=== PATIENT | female | born 1960 | race Caucasian/White ===

== ENCOUNTER 2024-05-16 16:32 | Emergency (ER) | payer OTHER, SELFPAY ==
[2024-05-16 16:42] VITALS: BP 154/86
[2024-05-16 17:06] LABS: % Basophils 0.6 % (0-2); % Eosinophils 3.3 % (0-6); % Immature Granulocytes 0.4 % (0-0.5); % Lymphocytes 36.6 % (20.5-51.1); % Monocytes 6.9 % (1.7-9.3); % Neutrophils 52.2 % (42.2-75.2); Absolute Basophils 0.1 10^3/uL (0-0.2); Absolute Eosinophils 0.3 10^3/uL (0-0.7); Absolute Lymphocytes 2.9 10^3/uL (1.2-3.4); Absolute Monocytes 0.6 10^3/uL (0.1-0.6); Absolute Neutrophils 4.2 10^3/uL (1.4-6.5); Hematocrit 42.1 % (37.0-47.0); Hemoglobin 15.1 g/dL (12.0-16.0); Mean Corp Hgb Conc. 35.9 g/dL (33.0-37.0); Mean Corpuscular Hgb 33.1 pg (27.0-31.0); Mean Corpuscular Volume 92.3 fL (81.0-99.0); Mean Platelet Volume 9.7 fL (7.4-10.4); Nucleated Red Blood Cells % 0 %; Platelet Count 276 10^3/uL (130-400); Red Blood Cell Count 4.56 10^6/uL (4.20-5.40); Red Cell Dist. Width 13.2 % (11.5-14.5)
[2024-05-16 17:18] LABS: ALT (SGPT) 37 U/L (0-35); AST (SGOT) 38 U/L (14-36); Albumin 4.6 g/dl (3.5-5.0); Alkaline Phosphatase 82 U/L (38-126); Blood Urea Nitrogen 19 mg/dl (7-17); Calcium 10.1 mg/dl (8.4-10.2); Carbon Dioxide 23 mmol/L (22-30); Chloride 108 mmol/L (98-107); Glucose 108 mg/dl (70-99); Potassium 4.5 mmol/L (3.5-5.1); Sodium 141 mmol/L (135-145); Total Bilirubin 0.6 mg/dl (0.2-1.3); Total Protein 7.1 g/dl (6.3-8.2); eGFR > 60.00
[2024-05-16 19:22] VITALS: BP 145/99
[2024-05-16 20:02] VITALS: BMI 25.9
[2024-05-16 20:03] VITALS: BP 145/96
--- NOTE | 2024-05-16 20:31 | ED.GENMED ---
History of Present Illness
General
Chief Complaint: Facial Problem
Source: patient
Exam Limitations: none
Time Seen by Provider: 05/16/24 19:31
History of Present Illness
History of Present Illness:
This is a 63 year old female that comes in with c/o bump on the left sided of her face. States that she felt that she has had this bump but it slide down lower on the cheek. States that it has now changed color . Patient was seen by the
[employer] and they were going to remove this but she did not want a scar States that the bump has gotten larger and is tender. States that she has an appointment with the Plastic surgeon on Tuesday. States that she has had a headache. Denies
any fever, chills, chest pain, SOB, abd pain, vomiting, diarrhea, dizziness, urinary burning.
Past History
Past History
ED Past Medical History: HTN, Psychiatric (Depression) and Other (Gastritis, enlarged gastric folds, )
ED Past Surgical History: Gynecological (Tubal)
Social History
Tobacco: Former smoker
Alcohol: None
Personal: Other (Seperated)
Living: with family
Review of Systems
Review of Systems
All Other Systems: ROS reviewed and negative except as documented in HPI and ROS
Constitutional: Reports no symptoms; Denies fever or chills
EENT: Reports no symptoms
Respiratory: Reports no symptoms; Denies cough or trouble breathing
Cardiac: Reports no symptoms; Denies chest pain
ABD/GI: Reports nausea; Denies abdominal pain, vomiting or diarrhea
: Reports no symptoms; Denies dysuria or urgency
Musculoskeletal: Reports no symptoms
Skin: Reports other (Bump on left cheek. )
Neurological: Reports headache; Denies dizzy
Psychiatric: Reports no symptoms
Phy Exam
General Physical Exam
General Presentation: well appearing and no apparent distress
General age: appears stated age
General Skin: warm and dry
General Habitus: normal
General Mental: alert
General Hydration: appears well hydrated
ENT Exam
ENT Exam: TM's normal, pharynx normal and neck supple
Eye Exam
Eye Exam: EOMI
Cardiovascular Exam
Cardiovascular Exam: regular rate/rhythm, no edema and normal peripheral pulses
Pulmonary Exam
Pulmonary Exam: lungs clear, no respiratory distress, no rales, chest non tender, no crackles, no rhonchi, no wheezing and no cough
Musculoskeletal Exam
Musculoskeletal Exam: full ROM and no edema
Skin Exam
Skin Exam: normal color, warm/dry, no rash, no petechia and other (Small abscess noted on the left cheek. Negative for any redness)
Psychiatric Exam
Psychiatric Exam: normal mood/affect
Course
Orders/Labs/Results
Orders:
Orders
05/16/24 16:55
CMP [Comprehensive Metabolic Panel] Urgent
Complete Blood Count/With Diff Urgent
Abnormal Lab Results
05/16/24
16:55
MCH 33.1 H pg
(27.0-31.0)
Chloride 108 H mmol/L
(98-107)
BUN 19 H mg/dl
(7-17)
Glucose 108 H mg/dl
(70-99)
AST 38 H U/L
(14-36)
ALT 37 H U/L
(0-35)
05/16/24 16:55
05/16/24 16:55
Very slight dehydration. Glucose nonfasting. AST/ALT very slightly elevated.
Vital Signs
Initial and Last Documented VS:
Initial Vital Signs
Temp Pulse Resp BP Pulse Ox
98.5 F 85 16 154/86 94
05/16/24 16:42 05/16/24 16:42 05/16/24 16:42 05/16/24 16:42 05/16/24 16:42
Last Documented Vital Signs
Temp Pulse Resp BP Pulse Ox
98.1 F 81 18 145/96 96
05/16/24 20:03 05/16/24 20:03 05/16/24 19:22 05/16/24 20:03 05/16/24 20:03
MDM/Problems Addressed
Differential Diagnosis Includes:
Abscess on cheek
MDM/Problems Addressed:
This is a 63 year old female that comes in with c/o bump on the left cheek. state that she feels that this has been there but just slid down. States that know it has turned color and is tender to tough.
Explained to patient that this is most likely an abscess. Since patient doesn't want a scar and she has an appointment with the Plastic surgeon on Tuesday, will place patient on antibiotics and have patient do warm compressed 3-4 times daily for 20
min. Patient to return with increased swelling, redness or fever.
Chronic conditions affecting care:
NA
Acute Exacerbation and/or Progression of Chronic Illness:
NA
*Pulse Oximetry
Patient hypoxic: no
*EKG
Interpreted by ED Provider?: NA
Rate: EKG- N/A
*Teletype Telegrapher Interpretation
Rate: Teletype Telegrapher- N/A
*Critical Care Note
Total Time (30-74mins, 75-104mins- exclusive of procedures): Not Applicable
ED Attending Note
-
Portions of this chart may have been created with voice recognition software.� Occasional wrong word or��sound alike� substitutions may have occurred due to the inherent limitations of voice recognition software.
Discharge Plan
Departure
Patient Disposition: Home (Routine Discharge)
Date of Disposition: 05/16/24
Time of Disposition: 20:39
Patient with high blood pressure during this ER visit?: Yes
Condition: Good
Covid-19: Not Applicable
Discharge Problem:
Abscess of face
Instructions: BLOOD PRESSURE, Skin Abscess
Prescriptions:
New
cephalexin 500 mg capsule
500 mg PO TID 7 Days Qty: 21 0RF
No Action
famotidine 20 MG tablet
20 mg PO PRN PRN (Reason: gerd)
losartan 25 MG tablet
25 mg PO DAILY
Depression Medication
1 dose PO DAILY
Patient Comments:
pt does not know
hydrocodone-acetaminophen 1 TABLET tablet
1 tab PO Q4HPRN PRN (Reason: pain) Qty: 15 0RF
tamsulosin 0.4 MG capsule
0.4 mg PO DAILY Qty: 14 0RF
Referrals:
Jason Blanchard DO [Family Provider] -
Activity Restrictions/Additional Instructions:
As discussed, this looks to be an abscess. You have been started on antibiotics here and a prescription has been sent to your Pharmacy. Please do warm compressed to the face 3-4 times daily for 20 min. You may also use Tylenol 1000mg every 6 hours
for pain and/or Ibuprofen 600mg every 6 hours with food for any discomfort. Follow up with the Plastic surgeon on Tuesday as scheduled. IF YOU HAVE FEVER, INCREASED REDNESS OR PAIN PLEASE RETURN TO THE EMERGENCY ROOM.
Interventions
Interventions:
*Risk Screen - Suicide Last Done: 05/16/24 20:03
*General Assessment Last Done: 05/16/24 20:03
*Neglect/Abuse Screening Last Done: 05/16/24 20:03
ED-Skin Assessment Last Done: 05/16/24 20:03
Discharge Date and Time
Print Language: MICRONESIAN
[2024-05-16] MEDS: KEFLEX 500 MG PO (20:47)
== END 2024-05-16 20:49 | disposition home or self-care (01) ==
LOC: EMR 16:32
PROVIDERS: Student in an Organized Health Care Education/Training Program; EMERGENCY PHYSICIAN Student in an Organized Health Care Education/Training Program; FAMILY PHYSICIAN Family Medicine
DX: L02.01 Cutaneous abscess of face (principal); R11.0 Nausea; R51.9 Headache, unspecified; I10 Essential (primary) hypertension; F32.A Depression, unspecified; Z87.891 Personal history of nicotine dependence; Z87.19 Personal history of other diseases of the digestive system
CPT/HCPCS: 99283; 80053; 85025

== ENCOUNTER 2025-02-20 06:19 | Day surgery (SDC) | payer OTHER, SELFPAY | END 2025-02-20 14:39 | disposition home or self-care (01) | LOC: GI 06:19 | PROVIDERS: ATTENDING PHYSICIAN Internal Medicine Gastroenterology | DX: R10.84 Generalized abdominal pain (principal); R14.0 Abdominal distension (gaseous); K29.70 Gastritis, unspecified, without bleeding; K31.89 Other diseases of stomach and duodenum; K29.40 Chronic atrophic gastritis without bleeding; K31.A11 Gastric intestinal metaplasia without dysplasia, involving the antrum | CPT/HCPCS: 43239; 88305; 88341; 88342 ==